=== PATIENT | male | born 1990 | race African-American/Black ===

== ENCOUNTER 2017-10-14 12:28 | Emergency (ER) | payer SELFPAY ==
[~2017-10-14] VITALS: Ht 170.2 cm; Wt 68.0 kg
[2017-10-14 12:41] VITALS: BP 112/67
--- NOTE | 2017-10-14 12:55 | ED ANIMAL BITE/WOUND CHECK ---
History of Present Illness General Chief Complaint: Suture Removal/Wound Recheck Stated Complaint: WOUND CHECK Source: patient Exam Limitations: no limitations Vital Signs & Intake/Output Vital Signs & Intake/Output ED Intake and Output 10/15 0000 10/14 1200 Intake Total Output Total Balance Patient 150 lb Weight Weight Reported by Patient Measurement Method Allergies Coded Allergies: pollen extracts (Severe, HIVES 10/01/17) Uncoded Allergies: SEAFOOD (Severe, HIVES 10/01/17) Triage Note: STAPLE REMOVAL FROM HEAD Triage Nurses Notes Reviewed? yes Onset: Abrupt Duration: week(s): (1), better, continues in ED Timing: single episode today Injury Environment: home Is Injury an Animal Bite? No No Modifying Factors: none HPI: 27-year-old male presents for staple removal. He was seen about one week ago with a scalp laceration. [place] were placed. Patient to keep the area clean and dry. He denies any redness swelling discharge or pain. No fevers. No other associated symptoms he feels like things are healing well. (yT Gonzalez) Past History Travel History Traveled to [place] past 21 day No Medical History Any Pertinent Medical History? see below for history Neurological: NONE EENT: NONE Cardiovascular: NONE Respiratory: NONE Gastrointestinal: NONE Hepatic: NONE Renal: NONE Musculoskeletal: NONE Psychiatric: NONE Endocrine: NONE Surgical History Surgical History: non-contributory Psychosocial History What is your primary language Indonesian Tobacco Use: Never used ETOH Use: denies use Illicit Drug Use: denies illicit drug use Family History Hx Contributory? No (Ty Gonzalez) Review of Systems Review of Systems Constitutional: Reports: no symptoms. EENTM: Reports: no symptoms. Respiratory: Reports: no symptoms. Cardiovascular: Reports: no symptoms. GI: Reports: no symptoms. Genitourinary: Reports: no symptoms. Musculoskeletal: Reports: no symptoms. Skin: Reports: see HPI. Neurological/Psychological: Reports: no symptoms. Hematologic/Endocrine: Reports: no symptoms. Immunologic/Allergic: Reports: no symptoms. All Other Systems: Reviewed and Negative (Ty Gonzalez) Physical Exam Physical Exam General Appearance: well developed/nourished, no apparent distress, alert, awake Head: atraumatic, there is a well-healed laceration with rell intact to the right parietal scalp. No discharge swelling erythema or pain. the wound is well approximated Eyes: Bilateral: normal appearance, PERRL, EOMI. Ears, Nose, Throat: hearing grossly normal Neck: normal inspection, supple, full range of motion Respiratory: no respiratory distress Back: normal inspection, normal range of motion Extremities: normal range of motion Neurologic/Psych: no motor/sensory deficits, awake, alert, oriented x 3, normal gait Skin: intact, normal color, warm/dry (Ty Gonzalez) Progress Differential Diagnosis: abscess, cellulitis, joint infection Plan of Care: Patient seen and evaluated. [place] were removed without Complication. Discussed wound care procedures. Follow-up with primary care doctor for wound check. Discussed return precautions patient appears quickly well he agrees the plan. (Ty Gonzalez) Departure Departure Disposition: HOME OR SELF CARE Condition: Stable Clinical Impression Primary Impression: Removal of staple Referrals: Unknown (PCP/Family) Additional Instructions: Keep the area clean and dry. [place] for signs of infection like redness swelling discharge or pain. Tylenol or ibuprofen for pain. You can wash YOUr hair like normal. Monitor symptoms return with any concerns. Departure Forms: Customer Survey General Discharge Information (Ty Gonzalez) PA/BRIDGE ENGINEER Co-Sign Statement Statement: ED Attending supervision documentation- [] I saw and evaluated the patient. I have also reviewed all the pertinent lab results and diagnostic results. I agree with the findings and the plan of care as documented in the PA's/BRIDGE ENGINEER's documentation. [X] I have reviewed the ED Record and agree with the PA's/BRIDGE ENGINEER's documentation. [] Additions or exceptions (if any) to the PAs/BRIDGE ENGINEER's note and plan are summarized below: [] (Fallon PHILLIP,Nakul Truong)
== END 2017-10-14 12:55 ==
LOC: ERH 12:28
DX: Z48.02 Encounter for removal of sutures (principal)